=== PATIENT | male | born 1965 | race Caucasian/White ===

== ENCOUNTER 2019-07-15 13:15 | Outpatient (CLI) | payer OTHER ==
[2019-07-15] MEDS ORDERED: OMNIPAQUE 350 MG/ML, 100ML BOTTLE ONE (15:00)
== END 2019-07-15 23:59 | disposition home or self-care (01) ==
LOC: RAD 13:15
PROVIDERS: ATTEND Family Medicine Adult Medicine
DX: I71.2 Thoracic aortic aneurysm, without rupture (principal); W45.8XXA Other foreign body or object entering through skin, initial encounter; Y93.89 Activity, other specified; Y92.89 Other specified places as the place of occurrence of the external cause; Y99.8 Other external cause status
CPT/HCPCS: 36415; 71275; 82565; Q9967

== ENCOUNTER 2019-11-08 06:10 | Outpatient (CLI) | payer OTHER | END 2019-11-08 23:59 | disposition home or self-care (01) | LOC: CVU 06:10 | DX: I71.9 Aortic aneurysm of unspecified site, without rupture (principal) | CPT/HCPCS: 93306 ==

== ENCOUNTER → 2020-06-07 | Day surgery (SDC) | payer OTHER ==
[~2020-06-07] VITALS: Ht 198.1 cm; Wt 143.0 kg
[~2020-06-07] MED LIST: AMLO-150 PO; ATOR40TA78 PO; BIVALIRUDIN 250 MG ONE; FENTANYL PF 100 MCG/2ML ONE; HEPARIN 1,000 UNITS/ML, 10ML ONE; HYDR50TA3 PO; LIDOCAINE 2%, 20ML ONE; LOSA25TA25 PO; MIDAZOLAM 1 MG/ML, 5ML ONE; NITROGLYCERIN 30 MCG/ML, 20ML VIAL ONE; OMNIPAQUE 350 MG/ML, 75ML BOTTLE ONE; PROP40TA PO; SODIUM CHLORIDE 0.9% 1,000 ML IV SCH; TICAGRELOR 90 MG TABLET ONE; VERAPAMIL 2.5 MG/ML, 2ML ONE
[2020-06-07 10:44] VITALS: BP 129/82
== END | disposition home or self-care (01) ==
LOC: SDC 09:25 → RAD 09:25 → EDSTATUS 10:30
PROVIDERS: ATTEND Internal Medicine Cardiovascular Disease
DX: R07.9 Chest pain, unspecified (principal); I71.2 Thoracic aortic aneurysm, without rupture; I10 Essential (primary) hypertension; E11.9 Type 2 diabetes mellitus without complications; R06.00 Dyspnea, unspecified; Z88.8 Allergy status to other drugs, medicaments and biological substances
CPT/HCPCS: 71275; 93458; 99156; C1769; C1894; J1644; J2250; J3010; Q9967; J0583

== ENCOUNTER → 2020-07-03 | Outpatient (CLI) | payer OTHER ==
[~2020-07-03] MED LIST changes: -BIVALIRUDIN 250 MG ONE; -FENTANYL PF 100 MCG/2ML ONE; -HEPARIN 1,000 UNITS/ML, 10ML ONE; -LIDOCAINE 2%, 20ML ONE; -MIDAZOLAM 1 MG/ML, 5ML ONE; -NITROGLYCERIN 30 MCG/ML, 20ML VIAL ONE; -OMNIPAQUE 350 MG/ML, 75ML BOTTLE ONE; -SODIUM CHLORIDE 0.9% 1,000 ML IV SCH; -TICAGRELOR 90 MG TABLET ONE; -VERAPAMIL 2.5 MG/ML, 2ML ONE
== END | disposition home or self-care (01) ==
LOC: CVU 14:10
PROVIDERS: ATTEND Thoracic Surgery (Cardiothoracic Vascular Surgery)
DX: I65.23 Occlusion and stenosis of bilateral carotid arteries (principal); I71.2 Thoracic aortic aneurysm, without rupture
CPT/HCPCS: 93880